=== PATIENT | male | born 1935 | race Caucasian/White ===

== ENCOUNTER → 2021-12-19 15:45 | Outpatient (BNVA) | payer MEDICARE, MEDICAID, SELFPAY | PROVIDERS: Family Provider Student in an Organized Health Care Education/Training Program; PCP Student in an Organized Health Care Education/Training Program; Visit Provider Internal Medicine Cardiovascular Disease | DX: I11.0 Hypertensive heart disease with heart failure (principal); I50.9 Heart failure, unspecified; I42.9 Cardiomyopathy, unspecified; I49.9 Cardiac arrhythmia, unspecified; I45.2 Bifascicular block; R55 Syncope and collapse; I49.3 Ventricular premature depolarization; I49.1 Atrial premature depolarization; R00.2 Palpitations | CPT/HCPCS: 80048; 83880; 93229; 99204 ==

== ENCOUNTER 2022-09-13 06:00 | Outpatient (RCR) | payer MEDICARE, MEDICAID, SELFPAY | END 2022-10-07 23:59 | disposition home or self-care (01) | LOC: SOT 06:00 | PROVIDERS: Visit Provider Family Medicine | DX: M25.561 Pain in right knee (principal); M79.604 Pain in right leg; R26.89 Other abnormalities of gait and mobility | CPT/HCPCS: 97167 ==